=== PATIENT | female | born 1970 | race Hispanic/Latino ===

== ENCOUNTER 2016-12-25 20:36 | Emergency (ER) | payer OTHER ==
[~2016-12-25] VITALS: Ht 152.4 cm; Wt 77.1 kg
[~2016-12-25 20:36] MED LIST: ASPIRIN EC325 MG PO
[2016-12-25 21:13] LABS: ABSOLUTE BASOPHIL COUNT 0.1 /CUMM (0.0-0.2); ABSOLUTE EOSINOPHIL COUNT 0.1 /CUMM (0.0-0.7); ABSOLUTE GRANULOCYTE CT 4.6 /CUMM (1.4-6.5); ABSOLUTE MONOCYTE COUNT 0.4 /CUMM (0.10-0.60); BASOPHIL % 0.9 % (0.0-2.0); EOSINOPHIL % 1.7 % (0-5); GRANULOCYTE % 64.4 % (42.2-75.2); HEMATOCRIT 42.8 % (37-47); MEAN CORPUSCULAR HGB 30.8 PG (27.0-31.0); MEAN CORPUSCULAR VOLUME 90.7 FL (81.0-99.0); MEAN PLATELET VOLUME 8.3 FL (7.4-10.4); PLATELET COUNT 312 /CUMM (130-400); RBC DISTRIBUTION WIDTH 12.8 % (11.5-14.5); RED BLOOD CELL CT 4.72 /CUMM (4.20-5.40); WHITE BLOOD CELL COUNT 7.2 /CUMM (4.8-10.8)
--- NOTE | 2016-12-25 22:12 | ED GI/GU/ABDOMINAL COMPLAINT ---
History of Present Illness General Chief Complaint: Abdominal Pain/Flank Pain Stated Complaint: R SIDED ABD. PAIN X WEEKS Source: patient, family, old records, sleep technician Exam Limitations: language barrier Vital Signs & Intake/Output Vital Signs & Intake/Output Vital Signs Date Time Temp Pulse Resp B/P Pulse O2 O2 Flow FiO2 Ox Delivery Rate 12/25 2231 99.0 67 18 150/90 96 Room Air 12/25 2052 99.0 70 14 145/74 100 Room Air ED Intake and Output 12/26 0000 12/25 1200 Intake Total Output Total Balance Patient 170 lb Weight Allergies Coded Allergies: NO KNOWN ALLERGIES (12/25/16) Reconcile Medications Aspirin (Ecotrin*) 81 MG TABLET.DR 1 TAB PO DAILY HEART/BLOOD (Reported) Lisinopril 20 MG TABLET 1 TAB PO DAILY BP (Reported) Metoclopramide HCl (Reglan) 10 MG TABLET 1 TAB PO TID PRN NAUSEA 30 minutes before meals and bedtime Pantoprazole Sodium (Protonix) 40 MG TABLET.DR 1 TAB PO DAILY gastritis Vitamin E Acid Succinate (Vitamin E) (Unknown Strength) TABLET (Unknown Dose) PO DAILY SUPPLEMENT (Reported) Triage Note: PT TO ED FOR R SIDED ABD PAIN RADIATING TO R LOWER BACK X MULTIPLE WEEKS, ALSO C/O STRONG SMELLING URINE AND INTERMITTENT DIARRHEA. Triage Nurses Notes Reviewed? yes LMP (ages 10-50): hysterectomy ? N Is pt currently ? No Onset: Gradual Duration: CONSTANT EVERYDAY WAXIN AND WAINING X 5 YEARS Timing: recent history Quality/Severity: aching, cramping Severity Numbers: 5 Location: right upper quadrant Radiation: epigastric, flank, LUQ Activities at Onset: none Prior Abdominal Problems: similar symptoms No Modifying Factors: none Associated Symptoms: DENIES HPI: 46-year-old female history of hypertension and hysterectomy presents to emergency room complaining of right upper quadrant abdominal pain that radiates to her right flank epigastric region and left upper quadrant that she states is been constant waxing and waning in severity for the past 5 years. The patient states that she has been admitted at [facility] and [facility] in the past most recently 1 year ago for the same at which time she's had multiple CAT scans colonoscopies and endoscopies performed with no known cause identified. She denies any modifying factors, the symptoms are not worse with eating no fever no chills. She states that she did has denied nausea or vomiting however reports intermittent diarrhea since the symptoms began. No recent weight loss no black or bloody stools. She states that recently in the morning her urine has been very dark in color and has spelled differently. She denies pain with urination and frequency urgency hematuria or vaginal bleeding or discharge. She denies any shortness of breath chest pain. Symptoms are not worse with eating she denies alcohol use. The patient had a normal bowel movement today. The patient states she came in tonight because her family made her, the symptoms are not worse than at baseline per her (CHANDRAKANT LAYNE) Past History Travel History Traveled to [place] past 21 day No Medical History Any Pertinent Medical History? see below for history Neurological: NONE EENT: NONE Cardiovascular: hypertension Respiratory: NONE Gastrointestinal: NONE Hepatic: NONE Renal: NONE Musculoskeletal: NONE Psychiatric: NONE Endocrine: NONE Blood Disorders: NONE Cancer(s): NONE Surgical History Surgical History: none Psychosocial History What is your primary language Jamaican Tobacco Use: Current Daily Use Daily Tobacco Use Amount/Type: =< 4 Cigarettes daily ETOH Use: occasional use Illicit Drug Use: denies illicit drug use Family History Hx Contributory? No (CHANDRAKANT LAYNE) Review of Systems Review of Systems Constitutional: Reports: see HPI. All Other Systems: Reviewed and Negative Comments Review of systems: See HPI, All other systems negative. Constitutional, no chills no fever, no malaise HEENT: No visual changes no sore throat no congestion Cardiovascular: No chest pain , no palpitation Skin, no jaundice no rashes, no change in skin Respiratory: No dyspnea no cough no sputum GI: No nausea no vomiting, diarrhea, no bloating/constipation : No dysuria No hematuria, no frequency, no discharge Muscle skeletal: No joint pain, no back pain, no neck pain, Neurologic: No numbness , no headache Psych: No stress . Heme/endocrine: No bruising no bleeding Immunology: No lymphadenopathy (CHANDRAKANT LAYNE) Physical Exam Physical Exam General Appearance: well developed/nourished, no apparent distress, alert, awake , comfortable Gastrointestinal: normal bowel sounds, soft, non-tender Comments: Well-developed well-nourished person in no acute distress HEENT: Normal EENT exam; PERRL, EOMI, HEAD is atraumatic. moist mucous membranes. Neck: Supple, , normal range of motion Back: Nontender, no CVA tenderness. Full range of motion Cardiovascular: Regular rate and rhythms no murmurs rubs or gallops Respiratory: Chest nontender.There were no bony deformities, no asymmetry. No respiratory distress. Patient speaking in full complete sentences. Breath sounds clear to auscultation bilaterally: NO W/R/R Abdomen: Soft, nontender negative Newton sign nondistended, no appreciable organomegaly. Normal bowel sounds. No rebound/guarding, No appreciable enlargement of the abdominal aorta, No ascites. Extremity: No edema, full range of motion of extremities Neuro: Alert oriented x3, motor sensory normal, . There were no obvious focal neurologic abnormalities. Skin: No appreciable rash on exposed skin, skin is warm and dry. No jaundice Psych: Mood and affect is normal, memory and judgment is normal. Core Measures ACS in differential dx? No Severe Sepsis Present: No Septic Shock Present: No (MARTHA HOUSTON,CHANDRAKANT) Progress Differential Diagnosis: appendicitis, biliary colic, bowel obstruction, ectopic , gastritis, hepatitis, hernia, ischemic bowel, inflamm bowel dis, kidney stone, pancreatitis, peptic ulcer, PUD/GERD, perforated viscous, SBO, UTI /pyelo, MALIGNANCY Plan of Care: Orders Procedure Date/time Status CULTURE,URINE 12/25 2051 Active URINALYSIS 12/25 2051 Complete COMPREHENSIVE METABOLIC PANEL 12/25 2051 Complete CBC WITHOUT DIFFERENTIAL 12/25 2051 Complete Laboratory Tests 12/25/162112: Urine Color YEL, Urine Clarity CLEAR, Urine pH 6.0, Ur Specific [place] 1.025, Urine Protein NEG, Urine Ketones TRACE H, Urine Nitrite NEG, Urine Bilirubin NEG, Urine Urobilinogen 1.0, Ur Leukocyte Esterase TRACE H, Ur Microscopic SEDIMENT EXAMINED, Urine WBC 3-5 H, Ur Epithelial Cells MOD H, Urine Crystals RARE CA OX, Urine Mucus MOD H, Urine Hemoglobin NEG, Urine Glucose NEG 12/25/16 2100: Anion Gap 12, Estimated GFR > 60, BUN/Creatinine Ratio 22.2, Glucose 111 H, Calcium 9.5, Total Bilirubin 0.7, AST 25, ALT 47, Alkaline Phosphatase 92, Total Protein 7.5, Albumin 4.3, Globulin 3.2, Albumin/Globulin Ratio 1.3, CBC w Diff NO MAN DIFF REQ, RBC 4.72, MCV 90.7, MCH 30.8, RDW 12.8, MPV 8.3, Gran % 64.4, Lymphocytes % 27.4, Monocytes % 5.6, Eosinophils % 1.7, Basophils % 0.9, Absolute Granulocytes 4.6, Absolute Lymphocytes 2.0, Absolute Monocytes 0.4, Absolute Eosinophils 0.1, Absolute Basophils 0.1, PUBS MCHC 34.0 Microbiology 12/25 2112 URINE ROUT: Urine Culture - RECD Labs were ordered from triage. Discussed the patient her family at length all of her lab results. She is had multiple workups in the past including imaging studies with no known cause identified at discussed with patient that I do not believe given her lab work tonight she requires another CAT scan. The patient was provided however with outpatient ultrasound of her right upper quadrant tomorrow as they're not available at this time the patient is afebrile nontoxic tolerating by mouth with a negative Newton sign do not believe she requires an emergent ultrasound or CAT scan at this time which they're in agreement with advised to follow-up, with her primary care physician return anytime sooner with any concerns prescription for Reglan and Protonix provided I answered all her questions they feel comfortable plan (CHANDRAKANT LAYNE) Initial ED EKG: none (CHANDRAKANT LAYNE) Departure Departure Time of Disposition: 2241 Disposition: HOME OR SELF CARE Condition: Stable Clinical Impression Primary Impression: Chronic abdominal pain Referrals: TOBY MEDINA,WILLIS MANTILLA (PCP/Family) Additional Instructions: Follow-up with primary care physician Dr tellez. Reglan as discussed for nausea. Protonix as directed [place] diet no fatty spicy greasy foods follow-up with outpatient radiology department tomorrow for an ultrasound of her gallbladder. Return anytime sooner with any concerns Departure Forms: Customer Survey General Discharge Information Prescriptions: Current Visit Scripts Pantoprazole Sodium (Protonix) 1 TAB PO DAILY #14 TAB Metoclopramide HCl (Reglan) 1 TAB PO TID PRN NAUSEA #12 TAB 30 minutes before meals and bedtime (CHANDRAKANT LAYNE) PA/RN ENDOCRINOLOGY Co-Sign Statement Statement: ED Attending supervision documentation- [] I saw and evaluated the patient. I have also reviewed all the pertinent lab results and diagnostic results. I agree with the findings and the plan of care as documented in the PA's/RN ENDOCRINOLOGY's documentation. [X] I have reviewed the ED Record and agree with the PA's/RN ENDOCRINOLOGY's documentation. [] Additions or exceptions (if any) to the PAs/RN ENDOCRINOLOGY's note and plan are summarized below: [] (SON MEDINA,CHAPARRITA Patel)
[2016-12-25 22:32] VITALS: BP 150/90
[2016-12-25] MEDS ORDERED: LISINOPRIL20 M1 PO (22:33)
[2016-12-25] MEDS ORDERED: ASPIRIN EC81 M1 PO (22:34)
[2016-12-25] MEDS ORDERED: VITAMIN E400 UNI3 PO (22:35)
[2016-12-25] MEDS ORDERED: REGLAN10 M1 PO (22:43)
[2016-12-25] MEDS ORDERED: PROTONIX40 M3 PO (22:43)
== END 2016-12-25 22:57 ==
LOC: ERH 20:36
PROVIDERS: Emergency Medicine
DX: R10.11 Right upper quadrant pain (principal)
CPT/HCPCS: 81001; 87086

== ENCOUNTER 2017-05-02 18:39 | Emergency (ER) | payer OTHER ==
[~2017-05-02 18:39] MED LIST changes: +ASPIRIN EC81 M1 PO; +LISINOPRIL20 M1 PO; +PROTONIX40 M3 PO; +REGLAN10 M1 PO; +VITAMIN E400 UNI3 PO
--- NOTE | 2017-05-02 18:50 | ED GENERAL ADULT ---
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 PT C/O DIFF BREATHING, PT PRIMARILY SINHALA SPEAKING. SON IS WIHT PT AND INTERPRETING. PER SON PT BECAME SOB WHILE DRIVING IN THE CAR. PT HX OF ASTHMA. RA SATS 99%, PT APPEARS ANXIOUS. C/O PAIN IN UPPE CHEST/THROAT AREA. MD TO BEDSIDE. RESP PAGED FOR TREATMENT. PT PLACED ON 2L NASAL CANNULA. Triage Nurses Notes Reviewed? yes Onset: Abrupt Duration: hour(s): Timing: recent history HPI: 05/02/17 8:05 pm 46-year-old female presents to the emergency department complaining of difficulty breathing. According to the patient she was in her usual state of health until earlier today when she had a sudden onset of difficulty breathing. No fever. No chest pain. Slight cough. She does have a history of high blood pressure and asthma. According to the son she has not taken her lisinopril for some time. On physical examination she was in severe distress with poor air entry bilaterally. She had an elevated blood pressure. Pulse ox was 98%. Onset of the symptoms were abrupt. Duration was just today. Severity was significant as the symptoms required her to come to the emergency department for care. (JACQUELINE REIS DO) Reconcile Medications Albuterol Sulfate (Ventolin Hfa) 90 MCG HFA.AER.AD 2 PUF INH Q4-6 PRN PRN WHEEZE Amoxicillin/Potassium Clav (Augmentin 875-125 Tablet) 875 MG-125 MG TABLET 1 TAB PO BID BRONCHITIS Aspirin (Ecotrin*) 81 MG TABLET.DR 1 TAB PO DAILY HEART/BLOOD (Reported) Benzonatate (Tessalon Perle) 100 MG CAPSULE 1 CAP PO TID PRN COUGH Budesonide/Formoterol Fumarate (Symbicort 160-4.5 Mcg Inhaler) (Unknown Strength ) HFA.AER.AD (Unknown Dose) INH AD PRN RESPIRATORY (Reported) Lisinopril 10 MG TABLET 1 TAB PO DAILY HIGH BLOOD PRESSURE Prednisone 50 MG TABLET 1 TAB PO DAILY ASTHMA (CAROL MEDINA,MEGGAN Severino) Past History Travel History Traveled to [place] past 21 day No Medical History Any Pertinent Medical History? see below for history Neurological: NONE EENT: NONE Cardiovascular: hypertension Respiratory: NONE Gastrointestinal: NONE Hepatic: NONE Renal: NONE Musculoskeletal: NONE Psychiatric: NONE Endocrine: NONE Blood Disorders: NONE Cancer(s): NONE Surgical History Surgical History: none Psychosocial History What is your primary language Chinese Tobacco Use: Never used Family History Hx Contributory? No (JACQUELINE REIS DO) Review of Systems Review of Systems Constitutional: Reports: no symptoms. EENTM: Reports: no symptoms. Respiratory: Reports: cough. Denies: short of breath. Cardiovascular: Reports: no symptoms. GI: Reports: no symptoms. Genitourinary: Reports: no symptoms. Musculoskeletal: Reports: no symptoms. Skin: Reports: no symptoms. Neurological/Psychological: Reports: no symptoms. Hematologic/Endocrine: Reports: no symptoms. Immunologic/Allergic: Reports: no symptoms. All Other Systems: Reviewed and Negative (JACQUELINE REIS DO) Physical Exam Physical Exam General Appearance: well developed/nourished, alert, awake, anxious, severe distress Head: atraumatic, normal appearance Eyes: Bilateral: normal appearance, PERRL, EOMI. Ears, Nose, Throat: normal ENT inspection Neck: supple Respiratory: decreased breath sounds, accessory muscle use, wheezing, respiratory distress Cardiovascular: regular rate/rhythm Peripheral Pulses: 4+ radial (R), 4+ radial (L) Gastrointestinal: soft, non-tender Back: decreased range of motion Extremities: normal inspection, limited range of motion Neurologic/Psych: no motor/sensory deficits, awake, alert, oriented x 3 Skin: intact, normal color, warm/dry Core Measures ACS in differential dx? No CVA/TIA Diagnosis: No Severe Sepsis Present: No Septic Shock Present: No (JACQUELINE REIS DO) Progress Differential Diagnoses I considered the following diagnoses in my evaluation of the patient: [asthma, angioedema, pneumonia, pneumothorax,] Plan of Care: Orders Procedure Date/time Status TROPONIN LEVEL 05/02 2147 Complete EKG 05/02 2147 Active TROPONIN LEVEL 05/02 1853 Complete D-DIMER 05/02 1853 Complete COMPREHENSIVE METABOLIC PANEL 05/02 1853 Complete CBC WITHOUT DIFFERENTIAL 05/02 1853 Complete EKG 05/02 1850 Active Current Medications Sig/Jose Start time Last Medication Dose Stop Time Status Admin Amoxicillin/ 1,000 MG ONCE ONE 05/02 2315 UNVr Clavulanate Potassium 05/02 2316 (Augmentin) Sodium Chloride 1,000 ML ONCE ONE 05/02 1900 AC 05/02 (Normal Saline 0.9%) 05/03 145 191 Laboratory Tests 05/02/172204: Troponin I < 0.01 05/02/171899: Anion Gap 12, Estimated GFR > 60, BUN/Creatinine Ratio 15.6, Glucose 113 H, Calcium 9.0, Total Bilirubin 0.9, AST 21, ALT 35, Alkaline Phosphatase 103, Troponin I < 0.01, Total Protein 7.4, Albumin 4.5, Globulin 2.9, Albumin/ Globulin Ratio 1.6, D-Dimer High Sensitivty < 200, CBC w Diff NO MAN DIFF REQ, RBC 4.63, MCV 91.0, MCH 30.5, RDW 13.8, MPV 8.9, Gran % 73.2, Lymphocytes % 20.0 L, Monocytes % 4.1, Eosinophils % 2.4, Basophils % 0.3, Absolute Granulocytes 9.2 H, Absolute Lymphocytes 2.5, Absolute Monocytes 0.5, Absolute Eosinophils 0.3, Absolute Basophils 0, PUBS MCHC 33.5 Initial ED EKG: NSR, no ST T wave changes Prior EKG: unchanged (JACQUELINE REIS DO) Diagnostic Imaging: Viewed by Me: Radiology Read. Discussed w/RAD: Radiology Read. CXR Impression: no acute abnormality, no infiltrates, normal size heart, normal mediastinum Comments: PATIENT: PURA CORNELIUS PRESENT AGE: 46 PATIENT ACCOUNT NO: [id number] : 68 LOCATION: [facility] ORDERING PHYSICIAN: JACQUELINE REIS DO SERVICE DATE: 05/02/17-1853 EXAM TYPE: RAD - XRY-PORTABLE CHEST XRAY EXAMINATION: XR PORTABLE CHEST CLINICAL INFORMATION: Shortness of breath. COMPARISON: None available. TECHNIQUE: Portable frontal view of the chest was obtained. FINDINGS: The cardiomediastinal silhouette is unremarkable. Lung volumes are diminished. The lungs and pleural spaces appear clear without evidence of congestion, consolidation, or significant appearing effusion or atelectasis. There is no evidence of pneumothorax or pulmonary edema. Included osseous structures appear largely unremarkable. IMPRESSION: Low lung volumes, otherwise unremarkable examination. DICTATED BY: YUMIKO VILLANUEVA MD DATE/TIME DICTATED:05/02/172017 CUSTOMER CARE REPRESENTATIVE:MARICHUY DATE/TIME TRANSCRIBED:05/02/172017 CONFIDENTIAL, DO NOT COPY WITHOUT APPROPRIATE AUTHORIZATION. <Electronically signed in Other Vendor System> SIGNED BY: YUMIKO VILLANUEVA MD 2021 (CAROL MEDINA,MEGGAN Severino) Departure Departure Disposition: STILL A PATIENT Condition: Stable Referrals: MARILOU MARMOLEJO (PCP/Family) Departure Forms: Customer Survey General Discharge Information Comments 05/02/17 10 pm The patient is asymptomatic in the emergency department. The second EKG shows no significant change. Repeat troponin is pending. The patient was signed out to Dr. Vasquez at 10 PM (JACQUELINE REIS DO) Departure Clinical Impression Primary Impression: Asthma Secondary Impressions: Bronchitis, High blood pressure Prescriptions: Current Visit Scripts Prednisone 1 TAB PO DAILY #5 TAB Albuterol Sulfate (Ventolin Hfa) 2 PUF INH Q4-6 PRN PRN WHEEZE #1 INHAL Benzonatate (Tessalon Perle) 1 CAP PO TID PRN COUGH #20 CAP Amoxicillin/Potassium Clav (Augmentin 875-125 Tablet) 1 TAB PO BID #20 TAB Lisinopril 1 TAB PO DAILY #20 TAB Comments 05/02/17, 23:05.... Pt feeling well, resting comfortably.... discussed at length with patient and family...Pt reports that she took lisinopril, but stopped several months ago for unknown reason. Labs benign/cxr benign... pt safe for discharge... will restart lisinopril (last dose was several months ago)... will treat bronchitis w/ abx, steroids/nebs... pt to call pmd in AM. (CAROL MEDINA,MEGGAN Severino) Critical Care Note Critical Care Note Critical Care Time: 30-74 min (SMILEY ROSA,JACQUELINE Garcia)
[2017-05-02] MEDS ORDERED: SYMBICORT 16010.2 GM INH (19:03)
[2017-05-02 19:33] LABS: ABSOLUTE BASOPHIL COUNT 0 /CUMM (0.0-0.2); ABSOLUTE EOSINOPHIL COUNT 0.3 /CUMM (0.0-0.7); ABSOLUTE GRANULOCYTE CT 9.2 /CUMM (1.4-6.5); ABSOLUTE LYMPH COUNT 2.5 /CUMM (1.2-3.4); ABSOLUTE MONOCYTE COUNT 0.5 /CUMM (0.10-0.60); BASOPHIL % 0.3 % (0.0-2.0); EOSINOPHIL % 2.4 % (0-5); GRANULOCYTE % 73.2 % (42.2-75.2); HEMATOCRIT 42.1 % (37-47); MEAN CORPUSCULAR HGB 30.5 PG (27.0-31.0); MEAN CORPUSCULAR HGB CONC 33.5 G/DL (33.0-37.0); MEAN PLATELET VOLUME 8.9 FL (7.4-10.4); PLATELET COUNT 293 /CUMM (130-400); RBC DISTRIBUTION WIDTH 13.8 % (11.5-14.5); RED BLOOD CELL CT 4.63 /CUMM (4.20-5.40); WHITE BLOOD CELL COUNT 12.5 /CUMM (4.8-10.8)
--- NOTE | 2017-05-02 20:22 | RADIOLOGY REPORT ---
EXAMINATION: XR PORTABLE CHEST CLINICAL INFORMATION: Shortness of breath. COMPARISON: None available. TECHNIQUE: Portable frontal view of the chest was obtained. FINDINGS: The cardiomediastinal silhouette is unremarkable. Lung volumes are diminished. The lungs and pleural spaces appear clear without evidence of congestion, consolidation, or significant appearing effusion or atelectasis. There is no evidence of pneumothorax or pulmonary edema. Included osseous structures appear largely unremarkable. IMPRESSION: Low lung volumes, otherwise unremarkable examination.
[2017-05-02 22:08] VITALS: BP 138/77
[2017-05-02] MEDS ORDERED: PREDNISONE50 M1 PO (23:02)
[2017-05-02] MEDS ORDERED: TESSALON PERLE100 M1 PO (23:02)
[2017-05-02] MEDS ORDERED: VENTOLIN HFA18 GM INH (23:02)
[2017-05-02] MEDS ORDERED: AUGMENTIN 875-1 EACH PO (23:09)
[2017-05-02] MEDS ORDERED: LISINOPRIL10 M1 PO (23:09)
== END 2017-05-02 23:20 ==
LOC: ERH 18:39
PROVIDERS: Emergency Medicine
DX: J45.909 Unspecified asthma, uncomplicated (principal); I10 Essential (primary) hypertension
CPT/HCPCS: 1263; 93005; 93010; 96361; 96374; 96375; 99291; J1200; J2930; J3490

== ENCOUNTER 2018-03-13 10:48 | Emergency (ER) | payer OTHER ==
[~2018-03-13] VITALS: Ht 160 cm; Wt 68.0 kg
[~2018-03-13 10:48] MED LIST changes: +AUGMENTIN 875-1 EACH PO; +IBUPROFEN600 M1 PO; +LISINOPRIL10 M1 PO; +LISINOPRIL40 M1 PO; +PERCOCET 5-3251 EACH PO; +PREDNISONE50 M1 PO; +SYMBICORT 16010.2 GM INH; +TESSALON PERLE100 M1 PO; +VENTOLIN HFA18 GM INH; +ZOFRAN ODT4 M1 SL
[2018-03-13] MEDS ORDERED: FEXMID7.5 MG PO (11:14)
--- NOTE | 2018-03-13 11:49 | ED UPPER/LOWER EXTREMITY COMPL ---
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 Exam Limitations: no limitations Vital Signs & Intake/Output Vital Signs & Intake/Output Vital Signs Date Time Temp Pulse Resp B/P B/P Pulse O2 O2 Flow FiO2 Mean Ox Delivery Rate 03/13 1421 98.1 68 16 109/68 99 Room Air 03/13 1420 Room Air ED Intake and Output 03/14 0000 05 1200 Intake Total Output Total Balance Patient 150 lb Weight Weight Reported by Patient Measurement Method Allergies Coded Allergies: NO KNOWN ALLERGIES (UNKNOWN 08/15/17) Reconcile Medications Budesonide/Formoterol Fumarate (Symbicort 160-4.5 Mcg Inhaler) 160 MCG-4.5 MCG/ ACTUATION HFA.AER.AD 2 PUF INH BID BREATHING PROBLEMS (Reported) Cyclobenzaprine HCl (Fexmid) 7.5 MG TABLET 1 TAB PO QPMP PRN PAIN (Reported) Lisinopril 40 MG TABLET 1 TAB PO DAILY HBP (Reported) Meloxicam (Mobic) 15 MG TABLET 1 TAB PO DAILY PRN PAIN Methylprednisolone. (Medrol) 4 MG TAB.DS.PK 1 DP PO AD PRN NERVE PAIN 6 on day 1 then reduce by one tablet daily until gone Triage Note: PT FROM HOME C/O RIGHT HIP/LEG PAIN X1 YEAR. PT IS MAINLY TONGAN SPEAKING. PT DENIES INJURY OR TRAUMA. PTS VSS. PT STATES NUMB/TINGLING DOWN RIGHT LEG. PT IS AMBULATORY WITH STEADY GAIT, NO DISTRESS NOTED. Triage Nurses Notes Reviewed? yes Onset: Gradual Duration: YEAR Timing: recent history Pain/Injury Location: Right: Hip, Leg. : No HPI: 47YO female with history of HTN presents to ED complaining of right hip/groin pain radiating to right thigh x 1 year. Patient is greek speaking only, used Alissa for translation. Patient states the pain has been gradually worsening for the past 4 months. Patient states that one year ago she fell on her right side at work. She has had no recent fall or trauma since initial injury. Patient states she had x-rays of the area done and was told that she likely had muscular pain. Patient has been taking Flexeril without significant relief. Patient reports intermittent numbness and tingling sensation in right leg. She denies groin numbness, urinary incontinence, bleeding, swelling. (Arabella Kerns) Past History Travel History Traveled to [place] past 21 day No Medical History Any Pertinent Medical History? see below for history Neurological: NONE EENT: NONE Cardiovascular: hypertension Respiratory: asthma Gastrointestinal: NONE Hepatic: NONE Renal: NONE Musculoskeletal: NONE Psychiatric: NONE Endocrine: NONE Blood Disorders: NONE Cancer(s): NONE Surgical History Surgical History: , left ovary cystectomy lysis of adhesions Psychosocial History What is your primary language Tajik Tobacco Use: Never used Family History Hx Contributory? No (Arabella Kerns) Review of Systems Review of Systems Constitutional: Reports: no symptoms. EENTM: Reports: no symptoms. Respiratory: Reports: no symptoms. Cardiovascular: Reports: no symptoms. Gastrointestinal/Abdominal: Reports: no symptoms. Genitourinary: Reports: no symptoms. Musculoskeletal: Reports: see HPI. Skin: Reports: no symptoms. Neurological/Psychological: Reports: see HPI. Hematologic/Endocrine: Reports: no symptoms. Immunological: Reports: no symptoms. All Other Systems: Reviewed and Negative (Arabella Kerns) Physical Exam Physical Exam General Appearance: well developed/nourished, no apparent distress, alert, awake Head: atraumatic, normal appearance Eyes: Bilateral: normal appearance. Ears, Nose, Throat: hearing grossly normal Neck: normal inspection, supple, full range of motion Cardiovascular/Respiratory: normal peripheral pulses, no respiratory distress Peripheral Pulses: 2+ dorsalis pedis (R), 2+ dorsalis pedis (L) Gastrointestinal: Right groin tenderenss Back: normal inspection, normal range of motion, no midline tenderness, right SI joint tenderness and right buttocks tenderness Leg Left: normal range of motion, normal inspection Leg Right: normal range of motion Hip Left: normal range of motion, normal inspection Hip Right: normal range of motion, normal inspection Knee Left: normal range of motion, normal inspection Knee Right: normal range of motion, normal inspection Foot Left: normal inspection, normal range of motion Foot Right: normal inspection, normal range of motion Neurologic/Tendon: normal sensation, normal motor functions, normal tendon functions, strength 5/5 equal bilaterally, straight leg raise + on right side Skin: intact, normal color, warm/dry (Arabella Kerns) Progress Differential Diagnosis: fracture, sprain, tendon injury, hernia, sciatica, lumbar disc disease, spinal stenosis Plan of Care: Orders Procedure Date/time Status CT PELVIS WO IV CONTRAST 03/[address] LUMB SPINE WO IV CONTRAST 03/13 1158 Active Current Medications Sig/Jose Start time Last Medication Dose Stop Time Status Admin Oxycodone/ 1 TAB ONCE ONE 03/13 1245 UNVr Acetaminophen 03/13 1246 (Percocet) CT scan shows normal lumbar spine. No hernia detected. Patient informed of these CT scan results. Patient instructed to follow up with neurosurgery/ortho regarding her back pain symptoms. symptoms are consistent with sciatica or possible radicular nerve pain. This patient may require MRI in the future. PAtient also will follow up with her primary care doctor, she was informed that her [facility] doctor may be able to order the MRI if necessary. Patient is able to ambulate in the emergency Department without difficulty. She has no saddle anesthesia, no urinary incontinence, low suspicion for cauda equina syndrome based on these findings. Patient started on short steroid course for possible nerve inflammation. Patient understands the necessity for follow-up. She will return with worsening symptoms or concerns. Patient agrees with plan of care. Patient seen and evaluated by Dr. Soto. Diagnostic Imaging: Viewed by Me: CT Scan. Discussed w/RAD: CT Scan. Radiology Impression: PATIENT: PURA CORNELIUS PRESENT AGE: 47 PATIENT ACCOUNT NO: [id number] : 68 LOCATION: [facility] ORDERING PHYSICIAN: Arabella HOUSTON SERVICE DATE: 03/13/18 EXAM TYPE: CAT - CT LUMB SPINE WO IV CONTRAST; CT PELVIS WO IV CONTRAST EXAMINATION: CT SCAN LUMBAR SPINE WITHOUT CONTRAST AND CT SCAN PELVIS WITHOUT CONTRAST CLINICAL INFORMATION: Right back pain with radiculopathy.] Groin pain COMPARISON: Abdominal and pelvic CT scan performed 08/15/2017 TECHNIQUE: Multidetector imaging is performed through lumbar spine and through pelvis, without contrast. DLP: 1469 mGy-cm FINDINGS: Lumbar spine: The vertebra are normal in height and alignment. There is no evidence for fracture. Disc spaces are maintained throughout. There is no osteophyte formation. No evidence for pars defect. The neural foramen appear patent. No obvious sign of stenosis. Pelvis: The sacroiliac joints appear normal. The hip joints are unremarkable. No remarkable osseous finding is seen. No evidence for hernia, with attention to the right inguinal region. The abdominal wall appears intact with a midline scar demonstrated. Normal-appearing bowel. No free fluid or focal fluid collection. No inflammatory changes are seen to the bowel. The uterus is small in size, likely representing partial hysterectomy. No pelvic mass is seen. IMPRESSION: No remarkable finding. Specifically, no evidence for fracture, degenerative disease or evidence for hernia. Given the history of radiculopathy, consider lumbar MRI. DICTATED BY: Jhoan Paiz MD DATE/TIME DICTATED:03/13/181258 PUBLISHING EDITOR:MARICHUY DATE/TIME TRANSCRIBED:03/13/181258 CONFIDENTIAL, DO NOT COPY WITHOUT APPROPRIATE AUTHORIZATION. <Electronically signed in Other Vendor System> SIGNED BY: Jhoan Paiz MD 03/13/18 1311 (Arabella Kerns) Departure Departure Disposition: HOME OR SELF CARE Condition: Stable Clinical Impression Primary Impression: Sciatica Qualifiers: Laterality: right Qualified Code: M54.31 - Sciatica, right side Referrals: Trent MEDINA,Kia Sykes MD,Sony Gonzales MD,Juan (PCP/Family) Additional Instructions: TOME PERCOCET SEGN LO PRESCRITO PARA EL DOLOR. SIMON EL PAQUETE ESTEROIDES COMPLETO. SEGUIR CON UN ESPECIALISTA CON RESPECTO A CAO DOLOR NERVIOSO, PUEDE REQUERIR NIRU MRI. REGRESE CON SORPRENDENTES SNTOMAS O PREOCUPACIONES. Departure Forms: Customer Survey General Discharge Information Prescriptions: Current Visit Scripts Methylprednisolone. (Medrol) 1 DP PO AD PRN NERVE PAIN #1 DP 6 on day 1 then reduce by one tablet daily until gone Meloxicam (Mobic) 1 TAB PO DAILY PRN PAIN #30 TAB (Anum HOUSTON,Arabella Kim) PA/TUBE DRAWING SUPERVISOR Co-Sign Statement Statement: ED Attending supervision documentation- [X I saw and evaluated the patient. I have also reviewed all the pertinent lab results and diagnostic results. I agree with the findings and the plan of care as documented in the PA's/TUBE DRAWING SUPERVISOR's documentation. [] I have reviewed the ED Record and agree with the PA's/TUBE DRAWING SUPERVISOR's documentation. [] Additions or exceptions (if any) to the PAs/TUBE DRAWING SUPERVISOR's note and plan are summarized below: [] (Martín Soto DO)
--- NOTE | 2018-03-13 13:11 | CT SCAN REPORT ---
EXAMINATION: CT SCAN LUMBAR SPINE WITHOUT CONTRAST AND CT SCAN PELVIS WITHOUT CONTRAST CLINICAL INFORMATION: Right back pain with radiculopathy.] Groin pain COMPARISON: Abdominal and pelvic CT scan performed 08/15/2017 TECHNIQUE: Multidetector imaging is performed through lumbar spine and through pelvis, without contrast. DLP: 1469 mGy-cm FINDINGS: Lumbar spine: The vertebra are normal in height and alignment. There is no evidence for fracture. Disc spaces are maintained throughout. There is no osteophyte formation. No evidence for pars defect. The neural foramen appear patent. No obvious sign of stenosis. Pelvis: The sacroiliac joints appear normal. The hip joints are unremarkable. No remarkable osseous finding is seen. No evidence for hernia, with attention to the right inguinal region. The abdominal wall appears intact with a midline scar demonstrated. Normal-appearing bowel. No free fluid or focal fluid collection. No inflammatory changes are seen to the bowel. The uterus is small in size, likely representing partial hysterectomy. No pelvic mass is seen. IMPRESSION: No remarkable finding. Specifically, no evidence for fracture, degenerative disease or evidence for hernia. Given the history of radiculopathy, consider lumbar MRI.
[2018-03-13] MEDS ORDERED: MEDROL4 M2 PO (14:04)
[2018-03-13] MEDS ORDERED: MOBIC15 M1 PO (14:05)
[2018-03-13 14:21] VITALS: BP 109/68
== END 2018-03-13 14:21 ==
LOC: ERH 10:48
DX: M54.41 Lumbago with sciatica, right side (principal)

== ENCOUNTER 2018-07-15 00:23 | Emergency (ER) | payer OTHER ==
[~2018-07-15] VITALS: Ht 154.9 cm; Wt 68.0 kg
[~2018-07-15 00:23] MED LIST changes: +FEXMID7.5 MG PO; +MEDROL4 M2 PO; +MOBIC15 M1 PO
--- NOTE | 2018-07-15 00:47 | ED GI/GU/ABDOMINAL COMPLAINT ---
History of Present Illness General Chief Complaint: Abdominal Pain/Flank Pain Stated Complaint: RIGHT SIDED ABD PAIN Source: patient Exam Limitations: no limitations Vital Signs & Intake/Output Vital Signs & Intake/Output Vital Signs Date Time Temp Pulse Resp B/P B/P Pulse O2 O2 Flow FiO2 Mean Ox Delivery Rate 07/15 0046 98.7 79 18 147/83 98 Room Air Allergies Coded Allergies: NO KNOWN ALLERGIES (UNKNOWN 08/15/17) Reconcile Medications Budesonide/Formoterol Fumarate (Symbicort 160-4.5 Mcg Inhaler) 160 MCG-4.5 MCG/ ACTUATION HFA.AER.AD 2 PUF INH BID BREATHING PROBLEMS (Reported) Cyclobenzaprine HCl (Fexmid) 7.5 MG TABLET 1 TAB PO QPMP PRN PAIN (Reported) Lisinopril 40 MG TABLET 1 TAB PO DAILY HBP (Reported) Meloxicam (Mobic) 15 MG TABLET 1 TAB PO DAILY PRN PAIN Methylprednisolone. (Medrol) 4 MG TAB.DS.PK 1 DP PO AD PRN NERVE PAIN 6 on day 1 then reduce by one tablet daily until gone Oxycodone HCl/Acetaminophen (Percocet 5-325 MG Tablet) 5 MG-325 MG TABLET 1 TAB PO 4XDP PRN PAIN SIX...[id number] Triage Nurses Notes Reviewed? yes ? n Is pt currently ? No Duration: week(s):, waxing and waning Timing: recent history Location: right lower quadrant Radiation: no radiation Activities at Onset: none Modifying Factors: Worsens With: palpation. Associated Symptoms: abdominal pain HPI: 47 YO WOMAN with intermittent abdominal discomfort for several years, s/p 3 operations on ovarian cysts. She reports that for the past 2 weeks her pain has worsened, and has been increasingly worse over the past 2 days. She notes no fever, chills, vaginal discharge, dysuria, polyuria. She is otherwise well. Past History Travel History Traveled to [place] past 21 day No Medical History Any Pertinent Medical History? see below for history Neurological: NONE EENT: NONE Cardiovascular: hypertension Respiratory: asthma Gastrointestinal: NONE Hepatic: NONE Renal: NONE Musculoskeletal: NONE Psychiatric: NONE Endocrine: NONE Blood Disorders: NONE Cancer(s): NONE Surgical History Surgical History: , left ovary cystectomy lysis of adhesions Psychosocial History What is your primary language Latvian Tobacco Use: Quit >30 days ago Family History Hx Contributory? No Review of Systems Review of Systems Constitutional: Reports: no symptoms. EENTM: Reports: no symptoms. Respiratory: Reports: no symptoms. Cardiovascular: Reports: no symptoms. GI: Reports: no symptoms. Genitourinary: Reports: no symptoms. Musculoskeletal: Reports: no symptoms. Skin: Reports: no symptoms. Neurological/Psychological: Reports: no symptoms. Hematologic/Endocrine: Reports: no symptoms. Immunologic/Allergic: Reports: no symptoms. All Other Systems: Reviewed and Negative Physical Exam Physical Exam General Appearance: well developed/nourished, mild distress Head: atraumatic, normal appearance Eyes: Bilateral: normal appearance. Ears, Nose, Throat, Mouth: hearing grossly normal, moist mucous membrane Neck: normal inspection, supple, full range of motion Respiratory: normal breath sounds, chest non-tender, no respiratory distress, quiet respiration Cardiovascular: regular rate/rhythm Gastrointestinal: normal bowel sounds, soft, tender to rlq, no rebound. no guarding. Pelvic: normal external exam, normal bimanual exam, NO DISCHARGE. Back: normal inspection Extremities: normal range of motion Neurologic/Psych: no motor/sensory deficits, awake, alert, oriented x 3 Skin: intact, normal color, warm/dry Core Measures ACS in differential dx? No Sepsis Present: No Sepsis Focused Exam Completed? No Progress Differential Diagnosis: appendicitis, cholecystitis, diverticulitis, gastritis, UTI/pyelo, ovarian cysts vs torsion vs other. Plan of Care: Orders Procedure Date/time Status TRICHOMONAS 07/15 325 Complete POTASSIUM HYDROXIDE (DARREL) 07/15 325 Complete GENITAL CULTURE 07/15 325 Active CHLAMYDIA-GC DNA PROBE 07/15 325 Active HUMAN BETA HCG SCREEN 07/15 108 Complete TROPONIN LEVEL 07/15 47 Complete LIPASE 07/15 47 Complete LACTIC ACID 07/15 47 Complete HEPATIC FUNCTION PANEL 07/15 47 Complete CBC WITHOUT DIFFERENTIAL 07/15 47 Complete BASIC METABOLIC PANEL 07/15 47 Complete AMYLASE 07/15 47 Complete EKG 07/15 47 Active Laboratory Tests 07/15/18 0108: Anion Gap 10, Estimated GFR > 60, BUN/Creatinine Ratio 24.3, Glucose 124 H, Lactic Acid 1.6, Calcium 9.5, Total Bilirubin 0.3, Direct Bilirubin 0.1, AST 18, ALT 28, Alkaline Phosphatase 90, Troponin I < 0.01, Total Protein 7.3, Albumin 4.4, Amylase 47, Lipase 111, Total Beta HCG NEGATIVE, CBC w Diff NO MAN DIFF REQ , RBC 4.34, MCV 92.1, MCH 31.4 H, MCHC 34.1, RDW 12.8, MPV 8.1, Gran % 54.1, Lymphocytes % 36.5, Monocytes % 6.6, Eosinophils % 2.4, Basophils % 0.4, Absolute Granulocytes 3.7, Absolute Lymphocytes 2.5, Absolute Monocytes 0.5, Absolute Eosinophils 0.2, Absolute Basophils 0 07/15/1856: Total Beta HCG Cancelled Microbiology 07/15 350 GENITAL: GC DNA Probe - RECD 07/15 350 GENITAL: Chlamydia DNA Probe (NORMA) - RECD 07/15 350 GENITAL: DARREL Preparation - COMP 07/15 350 GENITAL: Trichomonas Preparation - COMP 07/15 350 GENITAL: Genital Culture - RECD Diagnostic Imaging: Viewed by Me: CT Scan. Discussed w/RAD: CT Scan. Radiology Impression: PATIENT: PURA CORNELIUS PRESENT AGE: 47 PATIENT ACCOUNT NO: [id number] : 66 LOCATION: [facility] ORDERING PHYSICIAN: Donta Vasquez MD SERVICE DATE: 07/15/18 EXAM TYPE: CAT - CT ABD & PELVIS W/O IV CONTRAS EXAMINATION: CT ABDOMEN AND PELVIS WITHOUT CONTRAST CLINICAL INFORMATION: Right lower quadrant pain. COMPARISON: August 15, 2017. TECHNIQUE: Contiguous axial thin section helical images of the abdomen and pelvis were performed without oral or IV contrast. The data set was reformatted in the coronal and sagittal planes and reviewed on an independent workstation. DLP: 472 mGy-cm. FINDINGS: There is stable scarring within the inferior segment of the lingula. The visualized lung bases are otherwise clear. The visualized portions of the heart are unremarkable. The liver is of normal size and attenuation without focal lesions nor intrahepatic biliary ductal dilation. A normal gallbladder is identified. There is no wall thickening or discernible pericholecystic fluid. The spleen, pancreas, adrenal glands are unremarkable. Both kidneys are of normal size and attenuation without hydronephrosis or nephrolithiasis. There is no abdominal free fluid. There is neither mesenteric nor retroperitoneal lymphadenopathy. Normal unopacified loops of small and large bowel are identified. A normal appendix is identified. There is no pelvic free fluid. The urinary bladder is unremarkable. There is neither pelvic nor inguinal lymphadenopathy. Bone windows: Neither sclerotic nor lytic bone lesions are identified. IMPRESSION: No evidence for acute abdominal or pelvic inflammatory or infectious processes. DICTATED BY: Jareth Catalan MD DATE/TIME DICTATED:07/15 AUTO TRANSMISSION SPECIALIST:MARICHUY DATE/TIME TRANSCRIBED:07/15/18199 CONFIDENTIAL, DO NOT COPY WITHOUT APPROPRIATE AUTHORIZATION. <Electronically signed in Other Vendor System> SIGNED BY: Jareth Catalan MD 07/15/18205 CXR Impression: PATIENT: PURA CORNELIUS PRESENT AGE: 47 PATIENT ACCOUNT NO: [id number] : 66 LOCATION: [facility] ORDERING PHYSICIAN: Donta Vasquez MD SERVICE DATE: 07/15/18 EXAM TYPE: US - US- TRANSVAGINAL EXAMINATION: ULTRASOUND PELVIC, COMPLETE CLINICAL INFORMATION: Pain. COMPARISON: Same day abdominal and pelvic CT. TECHNIQUE: Transvaginal imaging was performed to afford for evaluation of the endometrium and adnexa. FINDINGS: The uterus is absent. The patient is status post hysterectomy. Neither ovary is identified. There are no adnexal mass lesions. There is no pelvic free fluid. IMPRESSION: Status post hysterectomy. Neither ovary is identified. No adnexal mass lesions are demonstrable. DICTATED BY: Jareth Catalan MD DATE/TIME DICTATED:07/15/18434 AUTO TRANSMISSION SPECIALIST:MARICHUY DATE/TIME TRANSCRIBED:434 CONFIDENTIAL, DO NOT COPY WITHOUT APPROPRIATE AUTHORIZATION. < Electronically signed in Other Vendor System> SIGNED BY: Jareth Catalan MD 07/15/18438 Initial ED EKG: sinus, no acute changes Departure Departure Disposition: HOME OR SELF CARE Condition: Stable Clinical Impression Primary Impression: Abdominal pain Referrals: Juan Gonzales MD (PCP/Family) Departure Forms: Customer Survey General Discharge Information Prescriptions: Current Visit Scripts Oxycodone HCl/Acetaminophen (Percocet 5-325 MG Tablet) 1 TAB PO 4XDP PRN PAIN #6 TAB SIX...[id number] Comments 07/15/18, 522am... pt resting comfortably... u/s is benign (no ovaries visualized) . ct scan benign... labs benign... pt stable for discharge, consider intrabdominal scar? Pt will follow up with GI and TRIM TECHNICIAN. gave percocet #6
[2018-07-15 01:23] LABS: ABSOLUTE BASOPHIL COUNT 0 /CUMM (0.0-0.2); ABSOLUTE EOSINOPHIL COUNT 0.2 /CUMM (0.0-0.7); ABSOLUTE GRANULOCYTE CT 3.7 /CUMM (1.4-6.5); ABSOLUTE LYMPH COUNT 2.5 /CUMM (1.2-3.4); ABSOLUTE MONOCYTE COUNT 0.5 /CUMM (0.10-0.60); BASOPHIL % 0.4 % (0.0-2.0); EOSINOPHIL % 2.4 % (0-5); GRANULOCYTE % 54.1 % (42.2-75.2); HEMATOCRIT 39.9 % (37-47); MEAN CORPUSCULAR HGB 31.4 PG (27.0-31.0); MEAN CORPUSCULAR HGB CONC 34.1 G/DL (33.0-37.0); MEAN CORPUSCULAR VOLUME 92.1 FL (81.0-99.0); MEAN PLATELET VOLUME 8.1 FL (7.4-10.4); PLATELET COUNT 354 /CUMM (130-400); RBC DISTRIBUTION WIDTH 12.8 % (11.5-14.5); RED BLOOD CELL CT 4.34 /CUMM (4.20-5.40); WHITE BLOOD CELL COUNT 6.9 /CUMM (4.8-10.8)
--- NOTE | 2018-07-15 02:06 | CT SCAN REPORT ---
EXAMINATION: CT ABDOMEN AND PELVIS WITHOUT CONTRAST CLINICAL INFORMATION: Right lower quadrant pain. COMPARISON: August 15, 2017. TECHNIQUE: Contiguous axial thin section helical images of the abdomen and pelvis were performed without oral or IV contrast. The data set was reformatted in the coronal and sagittal planes and reviewed on an independent workstation. DLP: 472 mGy-cm. FINDINGS: There is stable scarring within the inferior segment of the lingula. The visualized lung bases are otherwise clear. The visualized portions of the heart are unremarkable. The liver is of normal size and attenuation without focal lesions nor intrahepatic biliary ductal dilation. A normal gallbladder is identified. There is no wall thickening or discernible pericholecystic fluid. The spleen, pancreas, adrenal glands are unremarkable. Both kidneys are of normal size and attenuation without hydronephrosis or nephrolithiasis. There is no abdominal free fluid. There is neither mesenteric nor retroperitoneal lymphadenopathy. Normal unopacified loops of small and large bowel are identified. A normal appendix is identified. There is no pelvic free fluid. The urinary bladder is unremarkable. There is neither pelvic nor inguinal lymphadenopathy. Bone windows: Neither sclerotic nor lytic bone lesions are identified. IMPRESSION: No evidence for acute abdominal or pelvic inflammatory or infectious processes.
--- NOTE | 2018-07-15 04:39 | ULTRASOUND REPORT ---
EXAMINATION: ULTRASOUND PELVIC, COMPLETE CLINICAL INFORMATION: Pain. COMPARISON: Same day abdominal and pelvic CT. TECHNIQUE: Transvaginal imaging was performed to afford for evaluation of the endometrium and adnexa. FINDINGS: The uterus is absent. The patient is status post hysterectomy. Neither ovary is identified. There are no adnexal mass lesions. There is no pelvic free fluid. IMPRESSION: Status post hysterectomy. Neither ovary is identified. No adnexal mass lesions are demonstrable.
[2018-07-15] MEDS ORDERED: PERCOCET 5-3251 EACH PO (05:20)
[2018-07-15 05:37] VITALS: BP 136/65
== END 2018-07-15 05:37 ==
LOC: ERH 00:23
PROVIDERS: Pediatrics
DX: R10.31 Right lower quadrant pain (principal)
CPT/HCPCS: 87070; 74176; 87491; 87591; 93005; 93010; 96374; 96375; J1885; J2405

== ENCOUNTER 2018-08-05 04:35 | Emergency (ER) | payer OTHER ==
[~2018-08-05] VITALS: Ht 162.6 cm; Wt 59.0 kg
--- NOTE | 2018-08-05 04:47 | ED GENERAL ADULT ---
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 1 WILL TOP TID PRN ITCHING 5 DAYS MAX Lisinopril 40 MG TABLET 1 TAB PO DAILY HBP (Reported) Meloxicam (Mobic) 15 MG TABLET 1 TAB PO DAILY PRN PAIN Methylprednisolone. (Medrol) 4 MG TAB.DS.PK 1 DP PO AD PRN NERVE PAIN 6 on day 1 then reduce by one tablet daily until gone Oxycodone HCl/Acetaminophen (Percocet 5-325 MG Tablet) 5 MG-325 MG TABLET 1 TAB PO 4XDP PRN PAIN SIX...[id number] Triage Nurses Notes Reviewed? yes Onset: Abrupt Duration: day(s): Timing: recent history Injury Environment: home Severity: mild Associated Symptoms: bilateral hand itchiness HPI: 47 yo woman presents with 4 days of bilateral itchy hands, only in bed. She notes that she has the itchiness on her feet as well. She shares that there are no lesions, no bed bugs, no insect bites. Her hands are diffusely red. She does not recall any allergen that causes her symptoms. She is otherwise well. Past History Travel History Traveled to [place] past 21 day No Medical History Any Pertinent Medical History? see below for history Neurological: NONE EENT: NONE Cardiovascular: hypertension Respiratory: asthma Gastrointestinal: NONE Hepatic: NONE Renal: NONE Musculoskeletal: NONE Psychiatric: NONE Endocrine: NONE Blood Disorders: NONE Cancer(s): NONE Surgical History Surgical History: , left ovary cystectomy lysis of adhesions Psychosocial History What is your primary language Mongolian Family History Hx Contributory? No Review of Systems Review of Systems Constitutional: Reports: no symptoms. EENTM: Reports: no symptoms. Respiratory: Reports: no symptoms. Cardiovascular: Reports: no symptoms. GI: Reports: no symptoms. Genitourinary: Reports: no symptoms. Musculoskeletal: Reports: no symptoms. Skin: Reports: no symptoms. Neurological/Psychological: Reports: no symptoms. Hematologic/Endocrine: Reports: no symptoms. Immunologic/Allergic: Reports: no symptoms. All Other Systems: Reviewed and Negative Physical Exam Physical Exam General Appearance: well developed/nourished, mild distress Head: atraumatic, normal appearance Eyes: Bilateral: normal appearance. Ears, Nose, Throat: normal pharynx, normal ENT inspection Neck: normal inspection, supple, full range of motion Respiratory: normal breath sounds, chest non-tender, no respiratory distress, quiet respiration, lungs clear Cardiovascular: regular rate/rhythm Gastrointestinal: normal bowel sounds, soft, non-tender Back: normal inspection, normal range of motion Extremities: normal inspection, normal capillary refill Neurologic/Psych: no motor/sensory deficits, awake, alert, oriented x 3 Skin: intact, normal color, warm/dry, mild erythema w/ mild urticaria on both hands. feet are normal appearing. no tunneling type lesions suggestive of scabies, no crusting. no tenderness. Core Measures ACS in differential dx? No CVA/TIA Diagnosis: No Sepsis Present: No Sepsis Focused Exam Completed? No Progress Differential Diagnoses I considered the following diagnoses in my evaluation of the patient: contact dermatitis vs scabies vs other. Plan of Care: prescribed hydrocortisone cream and discussed benadryl rtc... close follow up advised. Initial ED EKG: none Departure Departure Disposition: HOME OR SELF CARE Condition: Stable Clinical Impression Primary Impression: Dermatitis Referrals: Juan Gonzales MD (PCP/Family) Departure Forms: Customer Survey General Discharge Information Prescriptions: Current Visit Scripts Hydrocortisone (Ala-Nirav) 1 WILL TOP TID PRN ITCHING #1 TUBE Ref 1 5 DAYS MAX Critical Care Note Critical Care Note Critical Care Time: non-applicable
[2018-08-05 05:22] VITALS: BP 108/71
[2018-08-05] MEDS ORDERED: ALA-CORT30 GM TOP (06:07)
== END 2018-08-05 06:19 ==
LOC: ERH 04:35
DX: L25.9 Unspecified contact dermatitis, unspecified cause (principal); I10 Essential (primary) hypertension